=== PATIENT | male | born 1940 | race Caucasian/White ===

== ENCOUNTER → 2017-01-17 | Outpatient (CLI) | payer MEDICARE ==
[~2017-01-17] MED LIST: ARTIFICIAL TEAR15 ML OU; ATROVENT HFA12.9 G1 IH; ATROVENT HFA12.9 GM IH; BREO ELLIP1 PUFF/DOS IH; CAPZASIN-HP42.5 GM TP; CARDIZEM CD DP120 MG PO; DELTASONE DPS5 MG PO; DILAUDID4 MG PO; DOCUSATE SODIU100 MG PO; FLECAINIDE ACE150 MG PO; KETOCONAZOLE15 GM TP; LACTULOSE20 GM/30 M PO; LYRICA100 MG PO; MILK OF MAGNESI10 ML PO; MUCINEX ER PO; MUCINEX600 MG PO; PRADAXA150 MG PO; PRESERVISION A1 EAC1 PO; PREVACID15 MG PO; PROBIOTIC1 EAC1 PO; SILVADENE DPS50 GM TP; TRAMADOL HCL50 MG PO; TUDORZA PRESS400 MCG IH; TYLENOL DPS325 MG PO; TYLENOL EXTRA500 MG PO; XANAX0.5 MG PO; XOPENEX1.25 MG/3 IH; [UNRECOGNIZED DRUG - OTHER] PO
== END | disposition home or self-care (01) ==
LOC: RAD.S 12-19 09:30
DX: J44.9 Chronic obstructive pulmonary disease, unspecified (principal); R91.1 Solitary pulmonary nodule; I77.810 Thoracic aortic ectasia

== ENCOUNTER 2017-04-06 03:37 | Emergency (ER) | payer MEDICARE ==
[~2017-04-06 03:37] MED LIST changes: -ATROVENT HFA12.9 G1 IH; -LACTULOSE20 GM/30 M PO; -LYRICA100 MG PO; -MUCINEX600 MG PO; -PROBIOTIC1 EAC1 PO; -SILVADENE DPS50 GM TP; -TYLENOL DPS325 MG PO
--- NOTE | 2017-04-09 01:36 | ER ---
ADMIT: 04/06/2017 RM/LOC: ER [facility] MR#: [id number] [address] [facility] [address] [place] [address] Emergency Room Report SEX: M AGE: 77 : 1940 DATE: 04/06/2017 ADDENDUM: A 77-year-old male, comes in with some complaints of shortness of breath, some diaphoresis and pain in the left side of his neck. He actually does not state he has any chest pain. We did get an EKG on arrival, and it showed normal sinus rhythm and he is not tachycardic. He did appear to have some slightly decreased air movement and wheezes bilaterally. He did get an IV started. He was given Solu-Medrol and a DuoNeb. Chest x-ray showed some possible mild CHF, and he did have some edema on exam. He was given 20 mg of Lasix and the combination of steroids, albuterol, and Lasix. He appears to be much more comfortable and almost back to baseline. The patient requests not wanting to stay in the hospital, so I did contact Dr. Arevalo, and talked it over with him and we will have the patient seen in clinic this week and follow up to see how he is doing. He is discharged home with a; DIAGNOSES: 1. Short of breath. 2. Chronic obstructive pulmonary disease. He is discharged in stable condition. Steve Osborn MD/ deanne JOB #: [id number] CC: Steve Osborn MD, Attending Physician Sharon Salas MD, Family Physician
[2017-08-17] MEDS ORDERED: MUCINEX600 MG PO (10:17)
[2017-08-17] MEDS ORDERED: LYRICA100 MG PO (10:17)
[2017-08-17] MEDS ORDERED: PROBIOTIC1 EAC1 PO (10:18)
[2017-08-17] MEDS ORDERED: XOPENEX1.25 MG/3 IH (10:20)
[2017-08-17] MEDS ORDERED: ATROVENT HFA12.9 G1 IH (10:21)
[2017-08-17] MEDS ORDERED: PREVACID15 MG PO (10:22)
[2017-08-17] MEDS ORDERED: SILVADENE DPS50 GM TP (10:23)
[2017-08-17] MEDS ORDERED: LACTULOSE20 GM/30 M PO (10:23)
[2017-08-17] MEDS ORDERED: TYLENOL DPS325 MG PO (10:24)
== END 2017-04-06 05:31 | disposition home or self-care (01) ==
LOC: ER 03:37
DX: J44.9 Chronic obstructive pulmonary disease, unspecified (principal); M06.9 Rheumatoid arthritis, unspecified; I48.0 Paroxysmal atrial fibrillation

== ENCOUNTER 2017-05-07 09:54 | Emergency (ER) | payer OTHER, MEDICARE ==
--- NOTE | 2017-05-08 16:20 | ER ---
ADMIT: 05/07/2017 RM/LOC: ER [facility] MR#: [id number] [address] [address] [address] [place] [address] Emergency Room Report SEX: M AGE: 77 : 1940 DATE: 05/07/2017 ADDENDUM: CHIEF COMPLAINT: Right flank and testicle pain. HISTORY OF PRESENT ILLNESS: This 77-year-old was diagnosed with a 4-mm stone on Monday. He said he has been trying to take tramadol at home through the weekend for the pain and just really has not been doing much better. HOSPITAL COURSE: I did give him Dilaudid 1 mg and Toradol 15 mg IV here in the emergency room, his pain has significantly improved. He feels okay to go home. He has an appointment with Dr. May tomorrow at 10 a.m. He said he will follow up tomorrow as scheduled. CLINICAL IMPRESSION: Renal colic. NAVID Lemon / Roshan Rinaldi MD / deanne JOB #: [id number] CC: Roshan Rinaldi MD, Attending Physician
[2017-08-17] MEDS ORDERED: LYRICA100 MG PO (10:17)
[2017-08-17] MEDS ORDERED: MUCINEX600 MG PO (10:17)
[2017-08-17] MEDS ORDERED: PROBIOTIC1 EAC1 PO (10:18)
[2017-08-17] MEDS ORDERED: XOPENEX1.25 MG/3 IH (10:20)
[2017-08-17] MEDS ORDERED: ATROVENT HFA12.9 G1 IH (10:21)
[2017-08-17] MEDS ORDERED: PREVACID15 MG PO (10:22)
[2017-08-17] MEDS ORDERED: SILVADENE DPS50 GM TP (10:23)
[2017-08-17] MEDS ORDERED: LACTULOSE20 GM/30 M PO (10:23)
[2017-08-17] MEDS ORDERED: TYLENOL DPS325 MG PO (10:24)
== END 2017-05-07 12:50 | disposition home or self-care (01) ==
LOC: ER 09:54
DX: N23 Unspecified renal colic (principal); J44.9 Chronic obstructive pulmonary disease, unspecified; Z85.118 Personal history of other malignant neoplasm of bronchus and lung; Z90.49 Acquired absence of other specified parts of digestive tract; Z98.890 Other specified postprocedural states; Z79.899 Other long term (current) drug therapy